=== PATIENT | male | born 1950 | race Hispanic/Latino ===

== ENCOUNTER → 2023-09-04 | Outpatient (CLI) | payer OTHER, MEDICARE ==
[2023-09-04 10:16] LABS: CREATININE 0.7 mg/dL (0.5-1.3)
== END | disposition home or self-care (01) ==
LOC: LAB 08:55
PROVIDERS: ATTEND Internal Medicine Gastroenterology
DX: R93.2 Abnormal findings on diagnostic imaging of liver and biliary tract (principal)
CPT/HCPCS: 36415; 82565; 84520

== ENCOUNTER → 2023-09-06 | Outpatient (CLI) | payer OTHER, MEDICARE ==
[~2023-09-06] MED LIST: IOHEXOL 350 MG/ML 100ML INFUS..BTL IV ONE
== END | disposition home or self-care (01) ==
LOC: RAH 09:45
PROVIDERS: ATTEND Internal Medicine Gastroenterology
DX: R16.0 Hepatomegaly, not elsewhere classified (principal); R93.2 Abnormal findings on diagnostic imaging of liver and biliary tract
CPT/HCPCS: 74170; Q9967